=== PATIENT | male | born 1965 | race Two or more races ===

== ENCOUNTER 2016-07-04 21:49 | Emergency (ER) | payer SELFPAY ==
[~2016-07-04] VITALS: Ht 177.8 cm; Wt 99.8 kg
[2016-07-04] MEDS ORDERED: HYDROCODONE/APAP 5/325MG 1 EACH TABLET ONE (22:15)
[2016-07-04] MEDS ORDERED: HYDROCODONE/APAP 5/325MG 1 EACH TABLET PO ONE (22:30)
[2016-07-05 00:12] VITALS: BP 110/74
== END 2016-07-05 00:13 | disposition home or self-care (01) ==
LOC: ER 21:51
DX: S80.01XA Contusion of right knee, initial encounter (principal); S00.83XA Contusion of other part of head, initial encounter; W01.0XXA Fall on same level from slipping, tripping and stumbling without subsequent striking against object, initial encounter; Y92.89 Other specified places as the place of occurrence of the external cause; Y93.89 Activity, other specified; Y99.8 Other external cause status
CPT/HCPCS: 70450; 70486; 72125; 73564; 99284; A4606; A6402; Z7610